=== PATIENT | male | born 1960 | race Caucasian/White ===

== ENCOUNTER 2023-02-21 09:40 | Emergency (ER) | payer OTHER, SELFPAY ==
--- NOTE | ~2023-02-21 | XR_ITS ---
EXAMINATION: XR chest 2V DATE: 02/21/2023 10:34 INDICATION: Cough. Shortness of breath. TECHNIQUE: Frontal and lateral views of the chest were obtained. COMPARISON: Chest 2 views 04/04/2004 FINDINGS: A calcified right lung nodule and calcified right hilar lymph nodes are consistent with old granulomatous disease. No pleural effusion or pneumothorax. The heart size is normal. IMPRESSION: 1. No acute cardiopulmonary disease. Reviewed, dictated and finalized at location [facility]. [employer]
[2023-02-21 09:57] VITALS: BP 136/78; PULSE 69; RESP 16; TEMP 36.2; O2SAT 97
--- NOTE | 2023-02-21 10:29 | ED.GENADULT ---
HPI - General Adult General Chief complaint: Upper Respiratory Infection Stated complaint: Shortness of Breath Source: patient Mode of arrival: ambulatory Limitations: no limitations History of Present Illness HPI narrative: Patient presents for evaluation of shortness of breath for the past two days. He reports postnasal drainage and nonproductive cough. No fever, chills, nausea, vomiting, diarrhea or chest pain. He does not smoke. No recent sick contacts to his knowledge. He is not taking any medications for his symptoms. Related Data Home Medications Medication Instructions Recorded Confirmed cholecalciferol (vitamin D3) 25 25 mcg PO DAILY 06/10/22 02/21/23 mcg (1,000 unit) tablet Allergies Allergy/AdvReac Type Severity Reaction Status Date / Time No Known Allergies Allergy Unknown Verified 02/21/23 09:58 Review of Systems Review of Systems: CONSTITUTIONAL: Denies fever, chills, or sweats. EYES: Denies visual changes, redness, or discharge. ENT: Reports postnasal drainage. Denies congestion, sore throat, or otalgia. CARDIOVASCULAR: Denies chest pain, palpitations, or edema. RESPIRATORY: Reports cough and SOB. GASTROINTESTINAL: Denies abdominal pain, nausea, vomiting, or diarrhea. GENITOURINARY: Denies dysuria or hematuria. SKIN: Denies rash or itching. MUSCULOSKELETAL: Denies back pain, joint pain, or myalgia. NEUROLOGIC: Denies headache, numbness, dizziness, or weakness. PSYCHIATRIC: Denies anxiety or depression. [facility] Past Medical History Medical History (Updated 02/21/23 @ 11:12 by BIJAL Verdugo, ) Hypothyroidism (acquired) Surgical History Surgical History History of sinus surgery Family History Family History Mother Family history non-contributory Social History Social History Smoking status: Never smoker Alcohol intake: never Substance use: never Gender identity (if verbalized by the patient): Male Spiritual care concerns: No Exam Narrative: GENERAL: Well-appearing, well-nourished, and in no acute distress. HEAD: Normocephalic, atraumatic. EYES: PERRLA and EOMI. ENT: Nares clear, no rhinorrhea or epistaxis. Mucous membranes moist. Oropharynx without tonsillar hypertrophy exudate or other lesions. Bilateral TMs pearly anderson nonbulging NECK: Supple. No adenopathy or masses. No carotid bruits or JVD CHEST: Cough present on exam. Wheezing in left lung base posteriorly. No respiratory distress. No wheezes rales or rhonchi HEART: Regular rate and rhythm. No murmur heard. Normal peripheral pulses. ABDOMEN: Soft, nontender, nondistended, normal active bowel sounds. EXTREMITIES: Normal range of motion. No edema. SKIN: Warm, dry, no rash. NEURO: No focal deficits. Alert and oriented x3. PSYCH: Normal mood and affect. Course Course Emergency Course: This is a 62-year-old male who presented for evaluation of shortness of breath. COVID and flu were negative. Chest x-ray normal. Given Solu-Medrol and DuoNeb. Symptoms improved thereafter. Saturations normal. No tachycardia to suggest pulmonary embolism. His exam today is consistent with viral URI. Will dc with prednisone, albuterol and tessalon. Follow up with primary provider. Go to the ER for worsening symptoms. Pt in agreement with plan of care. Level of Care: Express Care Visit Vital Signs Vital signs: Vital Signs Temperature 36.2 C L 02/21/23 09:57 Pulse Rate 69 02/21/23 09:57 Respiratory Rate 16 02/21/23 09:57 Blood Pressure 136/78 02/21/23 09:57 Pulse Oximetry 97 02/21/23 09:57 Oxygen Delivery Room Air 02/21/23 09:57 Temperature 36.2 C L 02/21/23 09:57 Pulse Rate 69 02/21/23 10:52 Respiratory Rate 16 02/21/23 10:52 Blood Pressure 136/78 02/21/23 09:57 Pulse Oximetry
[2023-02-21] MEDS: methylPREDNISolone SOD SUCC 125 MG VIAL IM (10:46)
[2023-02-21] MEDS: IPRATROPIUM BR 0.02% INH SOLN 0.5 MG/2.5 ML VIAL INHALATION (10:47)
[2023-02-21] MEDS: ALBUTEROL SULFATE NEB 2.5 MG/3 ML INH INHALATION (10:47)
[2023-02-21 10:52] VITALS: PULSE 69; RESP 16; O2SAT 97
[2023-02-21 11:10] VITALS: PULSE 84; RESP 18; O2SAT 98
== END 2023-02-21 11:15 | disposition home or self-care (01) ==
PROVIDERS: Emergency Provider Nurse Practitioner; PCP Family Medicine
DX: J06.9 Acute upper respiratory infection, unspecified (principal); E03.9 Hypothyroidism, unspecified; Z20.822 Contact with and (suspected) exposure to COVID-19
CPT/HCPCS: 71046; 87426; 87804; 94640; 96372; 99213; C9803; G0463; J2930

== ENCOUNTER 2023-12-13 07:15 | Outpatient (CLI) | payer BC, SELFPAY ==
--- NOTE | ~2023-12-13 | MR_ITS ---
MRI of the right knee Clinical history: Pain Technique: Coronal proton density and proton density-weighted images, sagittal proton-density and T2 fat-sat images, and axial proton-density fat-saturated images were acquired. Findings: Anterior and posterior cruciate ligaments are intact. Medial collateral ligament and the la teral collateral ligament complex are intact. Popliteus tendon is intact. There is complex tearing of the posterior horn and body of the medial meniscus. There is horizontal c leavage tear involving the lateral meniscus are essentially from posterior horn through the body and anterior horn. There is an associated para meniscal cyst adjacent the posterior horn of the lateral m eniscus measuring 7 mm in diameter. There is mild chondromalacia at the medial patellar facet. There is mild to moderate chondromalacia t owards the medial and lateral joint lines. Small tricompartmental osteophytes are present. Extensor mechanism is intact. There is minimal joint effusion. 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 There is edematous change of the quadriceps fat pad. Impression: Complex tearing of the posterior horn and body of medial meniscus. Extensive lateral meniscal horizontal cleavage tear, as detailed above, with associated posterior 7 m m parameniscal cyst. Mild tricompartmental degenerative change, as detailed above. 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 Edematous change of the quadriceps fat that could reflect impingement. Reviewed, dictated and finalized at [facility]. Impression: Complex tearing of the posterior horn and body of medial meniscus. Extensive lateral meniscal horizontal cleavage tear, as detailed above, with as sociated posterior 7 mm parameniscal cyst. Mild tricompartmental degenerative change, as detailed above. 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 Edematous change of the quadriceps fat that could reflect impingement.
== END 2023-12-13 07:16 | disposition home or self-care (01) ==
PROVIDERS: PCP Family Medicine; Visit Provider Orthopaedic Surgery
DX: S83.231A Complex tear of medial meniscus, current injury, right knee, initial encounter (principal); X58.XXXA Exposure to other specified factors, initial encounter; M17.11 Unilateral primary osteoarthritis, right knee; M71.21 Synovial cyst of popliteal space [Baker], right knee; R60.9 Edema, unspecified
CPT/HCPCS: 73721